=== PATIENT | female | born 1990 | race Caucasian/White ===

== ENCOUNTER 2017-05-08 04:37 | Emergency (ER) | payer OTHER ==
--- NOTE | 2017-05-08 04:49 | NUR ---
PT IS A/OX4 WALKING WITH A STEADY GAIT, PT DOESN NOT WANT TO BE MEDICALLY EVALUATED AND WALKED OUT OF THE ER WITH A STEADY GAIT
== END 2017-05-08 04:52 | disposition left against medical advice (07) ==
LOC: ER 04:39
DX: Z53.21 Procedure and treatment not carried out due to patient leaving prior to being seen by health care provider (principal)

== ENCOUNTER 2018-03-27 02:23 | Emergency (ER) | payer OTHER ==
[~2018-03-27] VITALS: Ht 162.6 cm; Wt 60.8 kg
[2018-03-27] MEDS ORDERED: ONDANSETRON HCL/PF 4 MG/2 ML VIAL IVP ONE (02:30)
[2018-03-27] MEDS ORDERED: IV NS 0.9% 1,000 ML BAG IV ONE (02:30)
--- NOTE | 2018-03-27 02:30 | NUR ---
BIB RA 60 C/C ALOC SECONDARY FOUND IN CAR NEXT TO OPEN BOTTLE OF XANAX AND ACETAMINOPHEN. NO S/S SOB. NO GAG REFLEX. VSS. NO SIGNS OF TRAUMA. AWAITING MD EVAL/ORDERS.
[2018-03-27 02:43] LABS: BASOPHILS % (AUTO) 0.3 % (0.0-2.0); EOSINOPHILS % (AUTO) 0.8 % (0.0-6.0); HEMATOCRIT 39 % (33-45); HEMOGLOBIN 12.7 g/dL (11.5-14.8); LYMPHOCYTES # (AUTO) 1.5 /CMM (0.8-4.8); LYMPHOCYTES % (AUTO) 19.9 % (20.0-44.0); MEAN CORPUSCULAR HEMOGLOBIN 29 PG (26.0-33.0); MEAN CORPUSCULAR HGB CONC 33 g/dl (31.0-36.0); MEAN CORPUSCULAR VOLUME 89 fL (82-100); MONOCYTES # (AUTO) 0.5 /CMM (0.1-1.30); MONOCYTES % (AUTO) 6.5 % (2.0-12.0); NEUTROPHILS # (AUTO) 5.3 /CMM (1.8-8.9); NEUTROPHILS % (AUTO) 72.5 % (43.0-81.0); PLATELET COUNT (AUTO) 284 /CMM (150-450); RDW COEFFICIENT OF VARIATION 14.7 (11.5-15.0); RED BLOOD CELL COUNT(AUTO) 4.36 MIL/uL (4.0-5.2); WHITE BLOOD COUNT (AUTO) 7.3 K/uL (4.3-11.0)
[2018-03-27] MEDS ORDERED: ONDANSETRON HCL/PF 4 MG/2 ML VIAL ONE (02:57)
[2018-03-27 03:04] LABS: ALBUMIN 3.6 g/dL (3.4-5.0); BILIRUBIN,DIRECT 0.2 mg/dL (0.0-0.2); BILIRUBIN,TOTAL 0.8 mg/dL (0.2-1.0); CALCIUM, SERUM 8.5 mg/dL (8.5-10.1); CREATININE 0.8 mg/dL (0.6-1.3); POTASSIUM 3.8 mmol/L (3.5-5.1); TOTAL PROTEIN, SERUM 7.5 g/dL (6.4-8.2)
[2018-03-27 03:08] LABS: SALICYLATE 1.4 mg/dL (2.8-20.0)
--- NOTE | 2018-03-27 03:10 | NUR ---
AMBULATED WITH ASSISTANCE TO THE BATHROOM. AA/OX4. STABLE CONDTION. VSS. SAFETY MEASURES IN PLACE. CALL LIGHT WITHIN REACH.
[2018-03-27 03:17] LABS: APPEARANCE,URINE CLEAR (CLEAR); BILIRUBIN,URINE NEGATIVE (NEGATIVE); BLOOD, URINE NEGATIVE Ery/uL (NEGATIVE); COLOR,URINE YELLOW (YELLOW); KETONES,URINE NEGATIVE (NEGATIVE); LEUKOCYTE ESTERASE ,URINE 1+ (NEGATIVE); NITRITE, URINE NEGATIVE (NEGATIVE); PROTEIN,URINE NEGATIVE (NEGATIVE); UGLUCOSE NEGATIVE (NEGATIVE); UROBILINOGEN,URINE 0.2 EU/dL (0.2)
[2018-03-27 03:34] LABS: BACTERIA,URINE Few /HPF (None Seen); RBC,URINE NONE SEEN /HPF (0-2); SQUAMOUS EPITHELIAL CELL,UR Few /HPF (None Seen)
--- NOTE | 2018-03-27 04:14 | NUR ---
PT GIVEN SANDWICH AND JUICE PER MD. PT ABLE TO VERBALIZE NEEDS OF WANTING TO EAT. VSS. NAD. SAFETY MEASURES IN PLACE. CALL LIGHT WITHIN REACH.
--- NOTE | 2018-03-27 04:53 | NUR ---
Patient discharged to home in stable condition. Written and verbal after care instructions given. Patient verbalizes understanding of instruction. IV removed. Catheter intact and site benign. Pressure and 4x4 applied to site. No bleeding noted. PT AMBULATED WITH STEADY GAIT UPON DC. INSTRUCTED NOT TO OPERATE HEAVY MACHINERY.
[2018-03-27 04:56] VITALS: BP 98/67
== END 2018-03-27 04:56 | disposition home or self-care (01) ==
LOC: ER 02:24
DX: T42.4X1A Poisoning by benzodiazepines, accidental (unintentional), initial encounter (principal); T39.1X1A Poisoning by 4-Aminophenol derivatives, accidental (unintentional), initial encounter; Y92.89 Other specified places as the place of occurrence of the external cause
CPT/HCPCS: 36415; 80048; 80076; 80305; 80329; 81001; 82962; 84703; 85025; 87086; 93005; 96374; 99285; A4606; G0480 ×2; J2405; J7030; Z7610; 81000-TC

== ENCOUNTER 2019-11-18 05:13 | Emergency (ER) | payer OTHER ==
[~2019-11-18] VITALS: Ht 170.2 cm; Wt 90.3 kg
--- NOTE | 2019-11-18 05:36 | NUR ---
PATIENT CAME TO ER BED 10 BIB RA60 C/O OVERDOSE. PATIENT STATES, "I TOOK 60 PILLS OF XANAX AND LORAZEPAM, AND I NEED MY STOMACH TO BE PUMPED OUT". PT DENIES SUICIDAL IDEATION. PATIENT IS AAOX2. SLOW TO RESPONSE TO QUESTIONS. BREATHING EVENLY AND UNLABORED ON ROOM AIR. CONNECTED TO MONITOR.
--- NOTE | 2019-11-18 06:17 | NUR ---
URINE COLLECTED AND SENT TO THE LAB
--- NOTE | 2019-11-18 07:33 | NUR ---
ENDORSEMENT RECEIVED FROM [facility] FOR [facility]
--- NOTE | 2019-11-18 08:10 | NUR ---
PROVIDED W BREAKFAST TRAY, PATIENT DOES NOT WANT TO EAT AT THIS TIME. PLACED TRAY AT BEDSIDE
--- NOTE | 2019-11-18 10:02 | NUR ---
PATIENT REFUSED LAB TESTS. MADE MD AWARE
[2019-11-18 10:06] LABS: APPEARANCE,URINE Clear (CLEAR); BILIRUBIN,URINE Negative (NEGATIVE); BLOOD, URINE Negative Ery/uL (NEGATIVE); COLOR,URINE Yellow (YELLOW); KETONES,URINE Negative (NEGATIVE); LEUKOCYTE ESTERASE ,URINE Negative (NEGATIVE); NITRITE, URINE Negative (NEGATIVE); PROTEIN,URINE Negative (NEGATIVE); UGLUCOSE Negative (NEGATIVE); UROBILINOGEN,URINE 0.2 EU/dL (0.2)
--- NOTE | 2019-11-18 10:32 | NUR ---
PATIENT ASLEEP IN BED, EASILY AROUSABLE BY VOICE. HOOKED TO MONITOR, WILL CONTINUE TO MONITOR ACCORDINGLY
--- NOTE | 2019-11-18 11:26 | NUR ---
PATIENT REFUSED LAB TESTS, MADE AWARE
--- NOTE | 2019-11-18 12:42 | NUR ---
PATIENT IN BED TUCKED IN BLANKET, EASILY AROUSABLE BY VOICE. WILL CONTINUE TO MONITOR ACCORDINGLY
--- NOTE | 2019-11-18 13:32 | NUR ---
PATIENT REFUSED LAB TESTS, MADE AWARE
--- NOTE | 2019-11-18 14:31 | NUR ---
PROVIDED W MEAL TRAY, TOLERATED FOOD WELL.
--- NOTE | 2019-11-18 16:22 | NUR ---
PATIENT AMBULATED TO RESTROOM W STEADY GAIT.
--- NOTE | 2019-11-18 17:52 | NUR ---
PATIENT STATES SHE WANTS TO GO HOME AND REST, MADE MD AWARE.
--- NOTE | 2019-11-18 18:21 | NUR ---
Patient discharged to home in stable condition. Written and verbal after care instructions given. Patient verbalizes understanding of instruction.
[2019-11-18 18:22] VITALS: BP 121/76
== END 2019-11-18 18:22 | disposition home or self-care (01) ==
LOC: ER 05:13
DX: F10.129 Alcohol abuse with intoxication, unspecified (principal); T42.4X1A Poisoning by benzodiazepines, accidental (unintentional), initial encounter; Y92.89 Other specified places as the place of occurrence of the external cause; Y90.9 Presence of alcohol in blood, level not specified
CPT/HCPCS: 80305; 81000-TC; 84703-TC